=== PATIENT | female | born 1995 | race Caucasian/White ===

== ENCOUNTER 2021-04-14 18:04 | Inpatient (IN) | payer BC ==
[2021-04-14] MEDS ORDERED: Terbutaline 1 MG/ML SDV SUBCUT PRN (18:36)
[2021-04-14] MEDS ORDERED: Misoprostol 200 MCG Tab PO PRN (18:39)
[2021-04-14] MEDS ORDERED: Sodium Chloride 0.9% 10 ML Syringe FLUSH PRN (18:39)
[2021-04-14] MEDS ORDERED: Sodium Chloride 0.9% 20 ML SDV IV PRN (18:39)
[2021-04-14] MEDS ORDERED: Water For Irrigation,Sterile 1,000 ML Container IRR PRN (18:39)
[2021-04-14] MEDS ORDERED: Nalbuphine 10 MG/1 ML Vial IVPUSH PRN (18:39)
[2021-04-14] MEDS ORDERED: Tranexamic Acid 1,000 MG in Sodium Chloride 0.9% 100 ML IV PRN (18:39)
[2021-04-14] MEDS ORDERED: Lidocaine 1% 50 ML MDV INJECT PRN (18:39)
[2021-04-14] MEDS ORDERED: Carboprost Tromethamine 250 MCG/1 ML Amp IM PRN (18:39)
[2021-04-14] MEDS ORDERED: Butorphanol 1 MG/ML SDV IVPUSH PRN (18:39)
[2021-04-14] MEDS ORDERED: Sodium Chloride 0.9% 2.5 ML Syringe FLUSH PRN (18:39)
[2021-04-14] MEDS ORDERED: Ondansetron 4 MG/2 ML SDV IVPUSH PRN (18:39)
[2021-04-14] MEDS ORDERED: Methylergonovine 0.2 MG/1 ML Amp IM PRN (18:39)
[2021-04-14] MEDS ORDERED: Oxytocin/0.9 % Sodium Chloride 30 UNIT/500 ML BAG IV SCH ×2 (18:45)
[2021-04-14] MEDS: Misoprostol 25 MCG (1/4 of 100 MCG) Tab VAG PRN ×2 (19:02→23:04)
[2021-04-14] MEDS: Lactated Ringers 1,000 ML IV SCH (19:36)
[2021-04-14 19:44] LABS: BLOOD UREA NITROGEN,BUN 8 mg/dL (7.0-18.0); CARBON DIOXIDE,CO2 21.2 mmol/L (21.0-32.0); CHLORIDE,CL 102 mmol/L (98-107); GLUCOSE RANDOM 82 mg/dL (74-106); POTASSIUM,K 4.2 mmol/L (3.5-5.1); SODIUM,NA 138 mmol/L (136-145)
[2021-04-14] MEDS: Clindamycin Phosphate in D5W 900 MG in Premix Bag 1 BAG IV SCH ×2 (19:44)
[2021-04-14] MEDS ORDERED: ePHEDrine 50 MG/ML SDV IVPUSH PRN ×2 (21:58)
[2021-04-14] MEDS ORDERED: Ropivacaine 200 MG in Premix Bag 1 BAG EPIDUR SCH (22:00)
[2021-04-15] MEDS ORDERED: fentaNYL 100 MCG/2 ML SDV ONE (03:38)
[2021-04-15] MEDS: Clindamycin Phosphate in D5W 900 MG in Premix Bag 1 BAG IV SCH ×4 (04:02→11:51)
[2021-04-15] MEDS: Lactated Ringers 1,000 ML IV SCH (04:07)
[2021-04-15] MEDS ORDERED: Lidocaine 2% with EPINEPHrine 1:200,000 20 ML SDV ONE (13:03)
[2021-04-15] MEDS ORDERED: Docusate Sodium 100 MG Cap PO PRN (13:26)
[2021-04-15] MEDS ORDERED: oxyCODONE 5 MG Tab PO PRN (13:26)
[2021-04-15] MEDS ORDERED: Acetaminophen 500 MG Tab PO PRN (13:26)
[2021-04-15] MEDS ORDERED: Lanolin 100% Cream 7 GM Tube TOP PRN (13:26)
[2021-04-15] MEDS ORDERED: Bisacodyl 10 MG Supp RECTAL PRN (13:26)
[2021-04-15] MEDS ORDERED: MOMETASONE FUROATE NASBOTH PRN (13:28)
[2021-04-15] MEDS: Ibuprofen 800 MG Tab PO PRN ×2 (14:47→20:54)
[2021-04-15] MEDS: Witch Hazel Medicated Pads 40/Jar TOP PRN ×2 (14:49→20:37)
[2021-04-15] MEDS: Benzocaine/Menthol 20%-0.5% Spray 78 GM Cannister TOP PRN ×2 (14:50→20:37)
[2021-04-16] MEDS ORDERED: Levothyroxine 125 MCG Tab PO SCH (07:30)
[2021-04-16] MEDS: Witch Hazel Medicated Pads 40/Jar TOP PRN (17:18)
== END 2021-04-16 17:31 | disposition home or self-care (01) | DRG 560 ==
LOC: MW.OBCHECK 18:04 → MW.OB 18:39 → OBSVTOIN 04-15 13:26 → MW.OB 04-16 01:17
PROVIDERS: ADMIT Obstetrics & Gynecology; ATTEND Obstetrics & Gynecology
PROC: 10E0XZZ Delivery of Products of Conception, External Approach (ICD-10-PCS; principal; 2021-04-15)
PROC: 0KQM0ZZ Repair Perineum Muscle, Open Approach (ICD-10-PCS; 2021-04-15)
PROC: 3E0P7VZ Introduction of Hormone into Female Reproductive, Via Natural or Artificial Opening (ICD-10-PCS; 2021-04-15)
PROC: 10907ZC Drainage of Amniotic Fluid, Therapeutic from Products of Conception, Via Natural or Artificial Opening (ICD-10-PCS; 2021-04-15)
PROC: 3E0R3BZ Introduction of Anesthetic Agent into Spinal Canal, Percutaneous Approach (ICD-10-PCS; 2021-04-15)
PROC: 00HU33Z Insertion of Infusion Device into Spinal Canal, Percutaneous Approach (ICD-10-PCS; 2021-04-15)
DX: O13.4 Gestational [pregnancy-induced] hypertension without significant proteinuria, complicating childbirth (principal); Z37.0 Single live birth; O70.1 Second degree perineal laceration during delivery; O69.81X0 Labor and delivery complicated by cord around neck, without compression, not applicable or unspecified; O99.284 Endocrine, nutritional and metabolic diseases complicating childbirth; E06.3 Autoimmune thyroiditis; O99.824 Streptococcus B carrier state complicating childbirth; Z20.822 Contact with and (suspected) exposure to COVID-19; Z3A.39 39 weeks gestation of pregnancy
CPT/HCPCS: 01967; 36415; 51701; 51702; 59025; 59409; 80053; 82570; 84156; 84550; 85014; 85018; 85027; 86592; 86850; 86900; 86901; A9270-GY; J0595; J2001; J2405; J2590; J2795; J3010; J3490; J7120; U0002

== ENCOUNTER 2023-06-09 18:23 | Inpatient (IN) | payer BC ==
[2023-06-09] MEDS ORDERED: Misoprostol 200 MCG Tab PO PRN (18:33)
[2023-06-09] MEDS ORDERED: Water For Irrigation,Sterile 1,000 ML Container IRR PRN (18:33)
[2023-06-09] MEDS ORDERED: Lidocaine 1% 50 ML MDV INJECT PRN (18:33)
[2023-06-09] MEDS ORDERED: Terbutaline 1 MG/ML SDV SUBCUT PRN (18:33)
[2023-06-09] MEDS ORDERED: Tranexamic Acid IN NACL,ISO-OS 1,000 MG in Premix Bag 1 BAG IV PRN (18:33)
[2023-06-09] MEDS ORDERED: Carboprost Tromethamine 250 MCG/1 mL Vial IM PRN (18:33)
[2023-06-09] MEDS ORDERED: Sodium Chloride 0.9% 10 ML Syringe FLUSH PRN (18:33)
[2023-06-09] MEDS ORDERED: Sodium Chloride 0.9% 2.5 ML Syringe FLUSH PRN (18:33)
[2023-06-09] MEDS ORDERED: Sodium Chloride 0.9% 20 ML SDV IV PRN (18:33)
[2023-06-09] MEDS ORDERED: Methylergonovine 0.2 MG/1 ML Amp IM PRN (18:33)
[2023-06-09] MEDS ORDERED: fentaNYL 100 MCG/2 ML SDV IVPUSH PRN (18:41)
[2023-06-09] MEDS ORDERED: Oxytocin/0.9 % Sodium Chloride 30 UNIT/500 ML BAG IV SCH (18:45)
[2023-06-09] MEDS ORDERED: Phenylephrine HCl In 0.9% NaCl 1 MG/10 ML Syringe IVPUSH PRN (18:47)
[2023-06-09] MEDS ORDERED: ePHEDrine 50 MG/ML SDV IVPUSH PRN (18:47)
[2023-06-09 19:20] LABS: HEMATOCRIT 34.6 % (37.0-47.0); HEMOGLOBIN 12.1 g/dL (12.0-16.0); MEAN CORPUSCULAR HEMOGLOBIN 30.9 pg (28.0-32.0); MEAN CORPUSCULAR VOLUME 88.3 fL (83.0-99.0); MEAN PLATELET VOLUME 10.7 fL (9.4-12.3); PLATELET COUNT,PLT 271 K/uL (150-400); RED BLOOD CELL COUNT 3.92 M/uL (4.10-5.30); WHITE BLOOD CELL COUNT,WBC 14.12 K/uL (3.9-11.3)
[2023-06-09] MEDS: Misoprostol 25 MCG (1/4 of 100 MCG) Tab PO PRN (19:37)
[2023-06-10] MEDS ORDERED: ePHEDrine 50 MG/ML SDV IVPUSH PRN ×2 (07:42)
[2023-06-10] MEDS ORDERED: Phenylephrine HCl In 0.9% NaCl 1 MG/10 ML Syringe IVPUSH PRN (07:42)
[2023-06-10] MEDS ORDERED: Ropivacaine HCl/PF 400 MG in Premix Bag 1 BAG EPIDUR SCH (07:45)
[2023-06-10] MEDS: Labetalol 100 MG/20 ML MDV IVPUSH ONE (08:48)
[2023-06-10] MEDS: Levothyroxine 125 MCG Tab PO SCH (08:48)
[2023-06-10] MEDS: Lactated Ringers 1,000 ML IV SCH (09:16)
[2023-06-10] MEDS: Oxytocin/0.9 % Sodium Chloride 30 UNIT/500 ML BAG IV SCH (09:19)
[2023-06-10] MEDS: Ropivacaine HCl/PF 400 MG in Premix Bag 1 BAG EPIDUR SCH (09:47)
[2023-06-10] MEDS: Labetalol 100 MG/20 ML MDV IVPUSH PRN (10:12)
[2023-06-10] MEDS: Phenylephrine HCl 0.5 MG/5 ML AMP ONE (10:22)
[2023-06-10] MEDS: dexmedeTOMIDine HCl 200 MCG/2 ML SDV ONE (10:22)
[2023-06-10] MEDS: Magnesium Sulfate/Water 4 GM/100 ML BAG IV ONE (10:27)
[2023-06-10] MEDS ORDERED: Sodium Chloride 0.9% 10 ML Syringe FLUSH PRN (11:01)
[2023-06-10] MEDS ORDERED: Calcium Gluconate 10% 1 GM/10 ML SDV IV PRN (11:01)
[2023-06-10] MEDS ORDERED: Sodium Chloride 0.9% 2.5 ML Syringe FLUSH PRN (11:01)
[2023-06-10] MEDS ORDERED: Sodium Chloride 0.9% 20 ML SDV IV PRN (11:01)
[2023-06-10] MEDS: Magnesium Sulfate/Water 20 GM/500 ML BAG IV SCH (11:04)
[2023-06-10] MEDS: ePHEDrine 50 MG/ML SDV IVPUSH PRN (11:35)
[2023-06-10] MEDS: Ondansetron 4 MG/2 ML SDV IVPUSH PRN (11:38)
[2023-06-10 11:56] LABS: APPEARANCE,URINE CLEAR; BILIRUBIN,URINE NEGATIVE (NEGATIVE); COLOR,URINE YELLOW; GLUCOSE,URINE NEGATIVE (NEGATIVE); KETONES,URINE NEGATIVE (NEGATIVE); LEUKOCYTE ESTERASE,URINE NEGATIVE (NEGATIVE); NITRITE,URINE NEGATIVE (NEGATIVE); OCCULT BLOOD,URINE MODERATE (NEGATIVE); PROTEIN,URINE NEGATIVE (NEGATIVE); UROBILINOGEN,URINE 0.2 EU/dL (<2.0)
[2023-06-10 11:59] LABS: HEMATOCRIT 35.6 % (37.0-47.0); HEMOGLOBIN 12.5 g/dL (12.0-16.0); MEAN CORPUSCULAR HEMOGLOBIN 31.4 pg (28.0-32.0); MEAN CORPUSCULAR HGB CONC 35.1 g/dL (32.0-36.0); MEAN CORPUSCULAR VOLUME 89.4 fL (83.0-99.0); MEAN PLATELET VOLUME 10.8 fL (9.4-12.3); PLATELET COUNT,PLT 284 K/uL (150-400); RED BLOOD CELL COUNT 3.98 M/uL (4.10-5.30); WHITE BLOOD CELL COUNT,WBC 15.85 K/uL (3.9-11.3)
[2023-06-10 12:04] LABS: BACTERIA,URINE FEW (NEGATIVE); MUCUS,URINE LIGHT (NONE-MOD); SQUAMOUS EPITHELIAL CELLS,UR FEW; WBC,URINE 0-2 (0-5/HPF)
[2023-06-10 12:17] LABS: A/G RATIO 0.6 (0.9-1.6); ALBUMIN 2.5 g/dL (3.4-5.0); BILIRUBIN TOTAL 0.4 mg/dL (0.2-1.0); CALCIUM 9.2 mg/dL (8.5-10.1); CARBON DIOXIDE,CO2 22.8 mmol/L (21.0-32.0); CREATININE 0.8 mg/dL (0.6-1.0); EST CRCL DRUG DOSING (CG) 107.46 mL/min; POTASSIUM,K 3.9 mmol/L (3.5-5.1); PROTEIN TOTAL,TP 6.4 g/dL (6.4-8.2); URIC ACID 5.3 mg/dL (2.6-7.2)
[2023-06-10 12:29] LABS: CREATININE,URINE RAND 45.8 mg/dL; PROTEIN CREATININE RATIO,URINE 0.4; PROTEIN,URINE RANDOM 17.6 mg/dL (<11.9)
[2023-06-10] MEDS ORDERED: Sennosides 8.6 MG Tab PO PRN (15:30)
[2023-06-10] MEDS ORDERED: Famotidine 20 MG Tab PO PRN (15:30)
[2023-06-10] MEDS ORDERED: Docusate Sodium 100 MG Cap PO PRN (15:30)
[2023-06-10] MEDS ORDERED: Simethicone 80 MG Tab.Chew PO PRN (15:30)
[2023-06-10] MEDS ORDERED: diphenhydrAMINE 50 MG Cap PO PRN (15:30)
[2023-06-10] MEDS ORDERED: Bisacodyl 10 MG Supp RECTAL PRN (15:30)
[2023-06-10] MEDS ORDERED: Lanolin 100% Cream 7 GM Tube TOP PRN (15:30)
[2023-06-10] MEDS ORDERED: Aluminum Hydroxide/Magnesium Hydroxide/Simethicone XS Susp 30 ML Cup PO PRN (15:30)
[2023-06-10] MEDS: Witch Hazel Medicated Pads 40/Jar TOP PRN (17:07)
[2023-06-10] MEDS: Benzocaine/Menthol 20%-0.5% Spray 78 GM Cannister TOP PRN (17:08)
[2023-06-10] MEDS: Acetaminophen 500 MG Tab PO PRN (21:25)
[2023-06-11] MEDS: Ibuprofen 800 MG Tab PO PRN (02:09)
[2023-06-11] MEDS ORDERED: Calcium Gluconate 10% 1 GM/10 ML SDV IV PRN (17:24)
[2023-06-11] MEDS: Labetalol 100 MG/20 ML MDV IVPUSH PRN (17:47)
[2023-06-11] MEDS: Magnesium Sulfate/Water 20 GM/500 ML BAG IV SCH (17:58)
[2023-06-12] MEDS: NIFEdipine 30 MG Tab.ER PO SCH (05:46)
[2023-06-12] MEDS: NIFEdipine 30 MG Tab.ER PO STA (09:20)
[2023-06-13] MEDS: NIFEdipine 30 MG Tab.ER PO SCH (09:45)
[2023-06-13] MEDS: NIFEdipine 30 MG Tab.ER PO ONE (12:37)
[2023-06-14] MEDS ORDERED: NIFEdipine 30 MG Tab.ER PO SCH (09:00)
== END 2023-06-13 17:58 | disposition home or self-care (01) | DRG 560 ==
LOC: MW.OB 18:23 → OBSVTOIN 06-10 15:30 → MW.OB 06-10 19:58
PROVIDERS: ADMIT Obstetrics & Gynecology; ATTEND Obstetrics & Gynecology
PROC: 10E0XZZ Delivery of Products of Conception, External Approach (ICD-10-PCS; principal; 2023-06-10)
PROC: 10907ZC Drainage of Amniotic Fluid, Therapeutic from Products of Conception, Via Natural or Artificial Opening (ICD-10-PCS; 2023-06-10)
PROC: 3E0DXGC Introduction of Other Therapeutic Substance into Mouth and Pharynx, External Approach (ICD-10-PCS; 2023-06-10)
PROC: 0KQM0ZZ Repair Perineum Muscle, Open Approach (ICD-10-PCS; 2023-06-10)
PROC: 3E0R3BZ Introduction of Anesthetic Agent into Spinal Canal, Percutaneous Approach (ICD-10-PCS; 2023-06-10)
PROC: 00HU33Z Insertion of Infusion Device into Spinal Canal, Percutaneous Approach (ICD-10-PCS; 2023-06-10)
DX: O13.4 Gestational [pregnancy-induced] hypertension without significant proteinuria, complicating childbirth (principal); Z37.0 Single live birth; O14.14 Severe pre-eclampsia complicating childbirth; O98.32 Other infections with a predominantly sexual mode of transmission complicating childbirth; O99.284 Endocrine, nutritional and metabolic diseases complicating childbirth; O99.214 Obesity complicating childbirth; A60.00 Herpesviral infection of urogenital system, unspecified; E06.3 Autoimmune thyroiditis; O76 Abnormality in fetal heart rate and rhythm complicating labor and delivery; O70.1 Second degree perineal laceration during delivery; Z3A.37 37 weeks gestation of pregnancy; Z88.0 Allergy status to penicillin; Z79.82 Long term (current) use of aspirin; Z79.899 Other long term (current) drug therapy; Z86.16 Personal history of COVID-19; Z98.890 Other specified postprocedural states
CPT/HCPCS: 36415; 51702; 59025; 59409; 80053; 81001; 82570; 83735; 84156; 84550; 85027; 86592; 86850; 86900; 86901; A9270-GY; J1921; J2371; J2405; J2590; J2795; J3475; J3490; J7120